=== PATIENT | male | born 1960 | race Caucasian/White ===

== ENCOUNTER 2017-12-25 01:02 | Emergency (ER) | payer OTHER, MEDICAID ==
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
[2017-12-25 01:08] VITALS: BP 155/89; PULSE 81; RESP 16; TEMP 97.5; O2SAT 93
[2017-12-25] MEDS ORDERED: IBUPROFEN 800 MG TAB PO ONE (01:13)
== END 2017-12-25 01:37 | disposition home or self-care (01) ==
DX: M25.511 Pain in right shoulder (principal); G89.29 Other chronic pain

== ENCOUNTER 2018-08-10 14:44 | Emergency (ER) | payer OTHER, MEDICAID ==
--- NOTE | 2018-08-10 15:09 | EDPHY ---
H & P Smoking Status: Current every day smoker Time Seen by Provider: 08/10/18 14:55 HPI/ROS: CHIEF COMPLAINT: Mental health hold HISTORY OF PRESENT ILLNESS: Patient is a 57-year-old male with history of schizoaffective disorder who presents emergency department from mental health clinic. The patient has been off his medications since March. He states he has been living in [place] but came back up to [place]. He went to the clinic and was subsequently placed on a hold for being gravely disabled. Patient states that he occasionally hears voices. He has no thoughts of self-harm or warnings hurt others. Patient states he is living on [address]. No other specific complaints at this time. REVIEW OF SYSTEMS: 10 systems were reveiwed and are negative with the exception of the elements mentioned in the history of present illness. (Renay Bran) Past Medical/Surgical History: Past medical history: Includes schizoaffective disorder Social history: Patient is homeless (Renay Bran) Physical Exam: Vitals noted GENERAL: Dirty, in no acute distress, alert. Disheveled. HEENT: Eyes normal to inspection, normal pharynx, no signs of dehydration. NECK: Normal, supple. RESPIRATORY: Clear to auscultation bilaterally, no rales, rhonchi or wheezing. CVS: Regular rate and rhythm, no rubs, murmurs, or gallops. ABDOMEN: Soft, nontender, nondistended, no organomegaly. BACK: Normal to inspection, no CVA tenderness. SKIN: Normal color, no rash, warm, dry. No pallor. EXTREMITIES: No pedal edema, no calf tenderness, no Homans sign or cords, no joint swelling. NEURO/PSYCH: Alert and oriented, flat affect, normal motor sensory exam. No obvious cranial nerve deficit. (Renay Bran) Constitutional: Initial Vital Signs Temperature (C) 36.6 C 08/10/18 14:51 Heart Rate 89 08/10/18 14:51 Respiratory Rate 16 08/10/18 14:51 Blood Pressure 134/82 H 08/10/18 14:51 O2 Sat (%) 91 L 08/10/18 14:51 O2 Delivery Mode Room Air Allergies/Adverse Reactions: tree nut [Nuts] Allergy (Verified 08/10/18 14:53) Home Medications: Medication Instructions Recorded risperiDONE [Risperdal] 6 mg PO 03/20/13 Ibuprofen 10/17/13 Medical Decision Making ED Course/Re-evaluation: In the emergency department discussed possible etiologies with the patient. I answered all his questions. I reviewed the patient's mental health hold that was completed prior to his arrival. Patient is aware the plan. I answered his questions. Awaiting psychiatric Services evaluation CBC and chemistry are negative. Aspirin and Tylenol negative. (Renay Bran) 7:00 a.m.-I assumed care of this patient at shift change. History of schizoaffective disorder presents with acute psychosis. On an M1 hold. Mental health evaluation pending. Noon-this patient was accepted to [facility], [place]. EMTALA completed. (Charity Elizabeth) Differential Diagnosis: My differential includes but not limited to depression, anxiety, schizoaffective disorder, bipolar disorder, psychosis, electrolyte abnormality, sugar abnormality, head injury, drug abuse, alcohol abuse (Renay Bran) Other Provider: 22:[address] Bran pending mental health evaluation. [id number] patient signed out to Dr. Andino pending mental health evaluation. No issues during my care this patient overnight. (Da Wang) - Data Points Laboratory Results: Laboratory Results 08/10/18 16:00 08/10/18 16:00 Departure - Departure Disposition: Other Psych, Not [facility] Clinical Impression: Acute psychosis Schizoaffective disorder Qualifiers: Schizoaffective disorder type: unspecified Qualified Code(s): F25.9 - Schizoaffective disorder, unspecified Condition: Fair Instructions: Schizoaffective Disorder (ED) Referrals: [facility],. [Clinic] - 5-7 days, call for appt.
[2018-08-10 16:16] LABS: PLATELET COUNT 198 10^3/uL (150-400)
[2018-08-11 13:22] VITALS: BP 124/90
== END 2018-08-11 13:20 ==
LOC: EDUNIT#
DX: F25.9 Schizoaffective disorder, unspecified (principal)
CPT/HCPCS: 80305; G0480